=== PATIENT | male | born 1995 | race Caucasian/White ===

== ENCOUNTER 2017-07-16 13:20 | Emergency (ER) | payer OTHER, SELFPAY ==
[2017-07-16 13:21] VITALS: BP 148/86; PULSE 129; RESP 20; TEMP 36.8; O2SAT 97; BMI 24.4
--- NOTE | 2017-07-16 13:25 | [facility].EDSEIZ ---
ED Disposition Clinical Impression: Epileptic seizure Qualifiers: Epilepsy type: unspecified Intractability: not intractable Status epilepticus: without status epilepticus Qualified Code(s): G40.909 - Epilepsy, unspecified, not intractable, without status epilepticus Disposition: Left Against Medical Advice Condition on Discharge: Good Instructions: DI for Seizure Disorder -- Adult, DI for Seizure (Not Epilepsy/Seizure Disorder), DI for Seizure Disorder -- Child - Critical Care Critical Care Time: No Attestation: On , the high probability of a clinically significant, sudden or life threatening deterioration of the following system(s) required my full and direct attention, intervention and personal management. The time I documented below is in addition to time spent performing reported procedures but includes the following listed in this critical care notation. Medical Decision Making - Medical Records Medical records reviewed: Yes: I reviewed the patient's medical records. - Mesfin Inquiry Pt receiving controlled substance: No Mesfin was queried for this patient: No Vital Signs: 07/16/17 13:21 Temperature 98.3 F Temperature Source Oral Pulse Rate [Right Brachial] 129 H Respiratory Rate 20 Blood Pressure [Right Arm] 148/86 Blood Pressure Mean [Right Arm] 106 Blood Pressure Source [Right Arm] Automatic Cuff Blood Pressure Position [Right Arm] Sitting 02 Sat by Pulse Oximetry 97 Oxygen Delivery Method Room Air - Lab Data Lab Results 07/16/17 13:23: WBC 10.6, RBC 5.57, Hgb 16.1, Hct 53.9 H, MCV 96.8 H, MCH 28.9, MCHC 29.8 L, RDW 12.9, Plt Count 310, MPV 8.1, Neut % (Auto) 46.4, Lymph % (Auto) 42.8, [place] % (Auto) 8.9, Eos % (Auto) 1.1, Baso % (Auto) 0.8, Neut # (Auto) 4.9, Lymph # (Auto) 4.6 H, [place] # (Auto) 1.0, Eos # (Auto) 0.1, Baso # (Auto) 0.1 07/16/17 13:23: Sodium 142, Potassium 3.2 L, Chloride 99, Carbon Dioxide 13 L, Anion Gap 33.2 H, BUN 10, Creatinine 1.86 H, Estimated Creat Clear 73, Estimated GFR 46 L, Est GFR ( Amer) 56 L, Glucose 91, Calcium 9.3, Total Bilirubin 0.4, AST 20, ALT 30, Alkaline Phosphatase 113, Total Protein 9.0 H, Albumin 4.5, Globulin 4.5 H, Albumin/Globulin Ratio 1.0 L 07/16/17 15:35: Urine Color Yellow, Urine Appearance Clear, Urine pH 7.5, Ur Specific [place] 1.020, Urine Protein Negative, Urine Glucose (UA) Trace, Urine Ketones Negative, Urine Blood Trace-l, Urine Nitrate Negative, Urine Bilirubin Negative, Urine Urobilinogen 0.2, Ur Leukocyte Esterase Negative, Urine RBC None, Urine WBC Occasional, Ur Squamous Epith Cells None, Amorphous Sediment 1+, Urine Bacteria Trace 07/16/17 15:35: Urine Opiates Screen Negative, Ur Barbituates Screen Negative, Ur Phencyclidine Scrn Negative, Ur Amphetamines Screen Negative, U Methamphetamines Scrn Negative, U Benzodiazepines Scrn Negative, Urine Cocaine Screen Negative, U Marijuana (THC) Screen Negative Result diagrams: 07/16/17 13:23 07/16/17 13:23 Orders (Tests/Meds): ED MEDICATIONS Discontinued Medications Generic Name Dose Route Start Last Admin Trade Name Atulq PRN Reason Stop Dose Admin Sodium Chloride 500 mls @ 500 mls/hr 07/16/17 14:45 07/16/17 15:18 Sod Chlor 0.9% 500ml Bag IV 07/16/17 15:44 500 mls/hr .Q1H PINO Administration Ibuprofen 600 mg 07/16/17 14:46 07/16/17 15:18 Motrin 600mg Tablet PO 07/16/17 14:47 600 mg ONCE ONE Administration Medical Decision Narrative: I expressed the opinion that he should stay in hospital for evaluation new onset seizure but he refuses, he understands consequences of leaving AMA. He also understands no driving until seen by neurology. He may return here any time for care. Seizures HPI - General Chief Complaint: Seizure Stated Complaint: seizure Time Seen by Provider: 07/16/17 14:15 Mode of Arrival: EMS Source of Information: Patient Limitations: No Limitations - History of Present Illness MD complaint: seizure Onset (ago): minute(s) (2) Desc
[2017-07-16 13:27] VITALS: BMI 24.4
--- NOTE | 2017-07-16 13:28 | CT_ITS ---
CT head/brain wo con INDICATION: Seizure activity Routine axial images for brain followed by additional post-processing axial bone window images. Axial CT scanning from the base of the skull through the vertex to evaluate the brain was performed. Subsequent post processing 2-D CT bone windows were submitted to PACS and are useful to evaluate calvarium, visualize portions of paranasal sinuses, mastoids and base of skull. Multiaxial scans are obtained from the base of the skull to the vertex and performed without contrast. The base of the skull appeared normal. The ventricular system was normal. There was no ischemic infarct or bleed and there were no extra-axial fluid collections. The bony calvarium appeared intact. IMPRESSION: Negative noncontrast CT scan of the brain.
[2017-07-16 14:11] LABS: Basophils # 0.1 K/mm3 (0-0.2); Basophils % 0.8 % (0.1-2.0); Eosinophils # 0.1 K/mm3 (0.0-0.4); Eosinophils % 1.1 % (0.1-12.0); Hematocrit 53.9 % (42.0-52.0); Hemoglobin 16.1 g/dL (14.1-18.0); Lymphocytes # 4.6 K/mm3 (0.7-4.5); Lymphocytes % 42.8 K/mm3 (10-50); Mean Corpuscular HGB Conc 29.8 g/dL (31.8-35.4); Mean Corpuscular Hemoglobin 28.9 pg (27.0-31.2); Mean Corpuscular Volume 96.8 fl (80-94); Mean Platelet Volume 8.1 fl (7.4-10.4); Monocytes % 8.9 % (1.7-9.3); Neutrophils # 4.9 K/mm3 (1.8-7.8); Neutrophils % 46.4 % (37.0-80.0); Platelet Count 310 K/mm3 (142-424); Red Blood Count 5.57 M/mm3 (4.60-6.20); Red Cell Distribution Width 12.9 % (11.5-17.5); White Blood Count 10.6 K/mm3 (4.8-10.8)
[2017-07-16 14:18] LABS: Alanine Aminotransferase 30 U/L (12-78); Albumin Level 4.5 gm/dL (3.4-5.0); Alkaline Phosphatase 113 U/L (46-116); Anion Gap 33.2 mEq/L (5-15); Aspartate Amino Transferase 20 U/L (15-37); Bilirubin,Total 0.4 mg/dL (0.2-1.0); Blood Urea Nitrogen 10 mg/dL (7-18); Calcium 9.3 mg/dL (8.5-10.1); Carbon Dioxide 13 mmol/L (21.0-32.0); Chloride 99 mmol/L (98-107); Creatinine Clearance Estimated 73 mL/min (0-300); Creatinine,Serum 1.86 mg/dL (0.70-1.30); Estimated Glomerular Filt Rate 46 ml/min (>60); GFR (African American) 56 ML/MIN (>60); Globulin 4.5 gm/dl (1.3-3.2); Glucose 91 mg/dL (74-106); Potassium 3.2 mmoL/L (3.5-5.1); Sodium 142 mmol/L (136-145)
[2017-07-16 15:42] LABS: Microscopic, Urine URINE MICROSCOPIC (MICROSCOPIC)
[2017-07-16 15:45] LABS: Appearance,Urine CLEAR (Clear); Bilirubin,Urine Negative (Negative); Blood, Urine TRACE-L (Negative); Color,Urine YELLOW (Yellow); Glucose,Urine (UA) TRACE (Negative); Ketones,Urine Negative (Negative); Leukocyte Esterase,Urine Negative (Negative); Nitrate,Urine Negative (Negative); PH,Urine 7.5 (5.0-8.5); Protein,Urine Negative (Negative); Urobilinogen,Urine 0.2 EU/dl (0.2)
[2017-07-16 15:56] LABS: Amphetamine/Metha Screen,Urine Negative ng/mL (<1000); Barbiturates Screen,Urine Negative ng/mL (<200); Benzodiazepines Screen,Urine Negative ng/mL (200); Cannabinoid Screen,Urine Negative ng/mL (<50); Cocaine Screen,Urine Negative ng/g (<300); Methadone Screen,Urine Negative ng/mL (<300); Opiate Screen,Urine Negative ng/mL (<300); Phencyclidine Screen,Urine Negative ng/mL (<25)
[2017-07-16 16:15] LABS: Amorphous Sediment,Urine 1+ /lpf; Bacteria,Urine Trace /lpf; WBC,Urine Occasional #/hpf (0-3)
--- NOTE | 2017-07-16 17:35 | PC.NURSE ---
Addendum entered by Juliet Salvador, EMT 07/16/17 17:56: DR. Smart Original Note: DR Loera speaking with DR tobar at [facility]
--- NOTE | 2017-07-16 17:41 | PC.NURSE ---
to be transferred to [facility]
[2017-07-16 18:17] VITALS: BP 151/84; PULSE 81; RESP 18; TEMP 36.6; O2SAT 98
== END 2017-07-16 18:26 | disposition short-term general hospital (02) ==
PROVIDERS: Emergency Provider Family Medicine
DX: G40.909 Epilepsy, unspecified, not intractable, without status epilepticus (principal)
CPT/HCPCS: 70450; 80053; 80305; 81001; 85025; 96365; 99284